=== PATIENT | male | born 2000 | race Caucasian/White ===

== ENCOUNTER 2022-03-09 04:36 | Emergency (ER) | payer OTHER ==
[2022-03-09] MEDS ORDERED: Ketorolac Tromethamine 30 MG/ML VIAL ONE (04:58)
[2022-03-09] MEDS ORDERED: Ondansetron PF 4 MG/2 ML Vial ONE (05:16)
[2022-03-09 05:31] LABS: #Monocytes 0.5 10x3/uL (0.0-1.1); #Neutrophils 5.9 10x3/uL (1.5-8.4); %Basophils 0.4 % (0.0-2.0); %Eosinophils 0.3 % (0.0-6.0); %Lymphocytes 7.1 % (18.0-47.0); %Monocytes 6.7 % (0.0-10.0); %Neutrophils 85.2 % (40.0-75.0); Hemoglobin 14.9 g/dL (13.5-17.5); Mean Corpuscular HGB CONC 35.7 g/dL (32.0-36.0); Mean Corpuscular Hemoglobin 30.9 pg (27.0-33.0); Mean Corpuscular Volume 86.5 fl (81.2-95.1); Mean Platelet Volume 10.7 fl (7.4-10.4); Platelet Count 138 10x3/uL (150-450); RBC Distribution Width 12.6 % (11.5-14.5); Red Blood Cell (RBC) Count 4.82 10x6/uL (4.32-5.72); White Blood Cell (WBC) Count 6.9 10x3/uL (3.5-10.5)
[2022-03-09 05:33] LABS: ALT (SGPT) 8 U/L (8-55); AST (SGOT) 12 U/L (10-45); Albumin 4.2 g/dL (3.5-5.0); Alkaline Phosphatase 50 U/L (50-130); Anion Gap 14 mmol/L (10-20); BUN (Urea Nitrogen) 9 mg/dL (8.4-21.0); Calc. Creatinine Clearance 0 mL/min (70-130); Calcium 9.4 mg/dL (7.8-10.44); Carbon Dioxide 24 mmol/L (22-29); Chloride 106 mmol/L (98-107); Globulin 2.4 g/dL (2.4-3.5); Glucose 119 mg/dL (70-105); Protein, Total 6.6 g/dL (6.0-8.3); Sodium 140 mmol/L (136-145)
[2022-03-09] MEDS ORDERED: Morphine 4 MG/ML VIAL ONE (05:45)
[2022-03-09] MEDS ORDERED: Iopamidol 300 61% 100 ML VIAL FS ONE (14:24)
== END 2022-03-09 07:20 | disposition home or self-care (01) ==
LOC: CSHERS 04:36
DX: R11.2 Nausea with vomiting, unspecified (principal); R33.9 Retention of urine, unspecified; G89.18 Other acute postprocedural pain
CPT/HCPCS: 36415; 74177; 80053; 83605; 85025; 96374; 96375; J1885; J2270; J2405; Q9967